=== PATIENT | female | born 1950 | race Caucasian/White ===

== ENCOUNTER 2017-11-04 13:50 | Day surgery (SDC) | payer MEDICARE, MEDICAID ==
[2017-11-01 10:47] LABS: BASOPHILS # (AUTO) 0.1 X10'3 (0-0.2); BASOPHILS % (AUTO) 0.9 % (0-1); EOSINOPHILS # (AUTO) 0.2 X10'3 (0-0.9); EOSINOPHILS % (AUTO) 3.4 % (0-6); HEMATOCRIT 35.1 % (35.0-45.0); HEMOGLOBIN 12.1 g/dl (12.0-16.0); LYMPHOCYTES # (AUTO) 1.5 X10'3 (1.1-4.8); LYMPHOCYTES % (AUTO) 23.8 % (21-51); MEAN CORPUSCULAR HEMOGLOBIN 30.1 PG (27.0-31.0); MEAN CORPUSCULAR HGB CONC 34.4 % (33.0-36.5); MEAN CORPUSCULAR VOLUME 87.5 FL (78-98); MEAN PLATELET VOLUME 8.3 FL (7.4-10.4); MONOCYTES # (AUTO) 0.5 X10'3 (0-0.9); MONOCYTES % (AUTO) 8.2 % (2-12); NEUTROPHILS # (AUTO) 3.9 X10'3 (1.8-7.7); NEUTROPHILS % (AUTO) 63.7 % (42-75); PLATELET COUNT 231 X10'3 (140-440); RED BLOOD COUNT 4.01 X10'6 (4.20-5.60); WHITE BLOOD COUNT 6.1 X10'3 (4.5-11.0)
[2017-11-01 11:02] LABS: ALBUMIN 2.8 G/DL (3.4-5.0); ANION GAP 7 (8-16); BLOOD UREA NITROGEN 16 MG/DL (7-18); BUN/CREATININE RATIO 12.5 (6.6-38.0); CALCIUM 8.5 MG/DL (8.5-10.1); CHLORIDE 104 MMOL/L (99-107); CREATININE 1.28 MG/DL (0.40-0.90); GLUCOSE 107 MG/DL (70-104); PARTIAL THROMBOPLASTIN TIME 27 SECONDS (22-32); POTASSIUM 3.9 MMOL/L (3.5-5.1); PROTHROMBIN TIME 10.7 SECONDS (9.0-12.0); SODIUM 140 MMOL/L (135-145); TOTAL CARBON DIOXIDE 29.1 MMOL/L (24-32); eGFR 42 ML/MIN
[2017-11-04] VITALS (12 sets, daily range): BP systolic 120–161; BP diastolic 56–93
[~2017-11-04] VITALS: Ht 165.1 cm; Wt 111.8 kg
[~2017-11-04 13:50] MED LIST: APIX5TAB3 PO; CITA-278 PO; FLEC100T2 PO; FURO20TA4 PO; HYDR-3686 PO; LORA0.5T PO; MULT-1179 PO; OMEP20CA4 PO; QUET25TA PO; SIMV20TA5 PO; TRAM50TA2 PO; ZOLP10TA5 PO
[2017-11-04] MEDS ORDERED: fentaNYL/PF 50MCG/1 ML 2ML syringe IV ONE (14:30)
[2017-11-04] MEDS ORDERED: MIDAZolam 5mg/ml 2ml vial IV ONE (14:30)
[2017-11-04] MEDS ORDERED: normal saline 1000ml 1,000 ML IV SCH (14:30)
[2017-11-04] MEDS ORDERED: ALBU18HF2 INH (15:01)
[2017-11-04] MEDS ORDERED: FLUT16SP2 BOTHNARES (15:01)
[2017-11-04] MEDS ORDERED: LEVO100T PO (15:01)
[2017-11-04] MEDS ORDERED: FAMO40TA7 PO (15:01)
[2017-11-04] MEDS ORDERED: BUSP15TA3 PO (15:01)
[2017-11-04] MEDS ORDERED: DIPH25CA6 PO (15:01)
[2017-11-04] MEDS ORDERED: PRAM0.253 PO (15:01)
== END 2017-11-04 18:15 | disposition home or self-care (01) ==
LOC: SSTAY O 13:50
PROVIDERS: ATTEND Internal Medicine Interventional Cardiology
DX: I48.3 Typical atrial flutter (principal); I13.0 Hypertensive heart and chronic kidney disease with heart failure and stage 1 through stage 4 chronic kidney disease, or unspecified chronic kidney disease; G47.33 Obstructive sleep apnea (adult) (pediatric); I50.33 Acute on chronic diastolic (congestive) heart failure; F41.9 Anxiety disorder, unspecified; K21.9 Gastro-esophageal reflux disease without esophagitis; F32.9 Major depressive disorder, single episode, unspecified; I25.2 Old myocardial infarction; I48.0 Paroxysmal atrial fibrillation; N18.4 Chronic kidney disease, stage 4 (severe); I25.10 Atherosclerotic heart disease of native coronary artery without angina pectoris; E03.9 Hypothyroidism, unspecified; M19.90 Unspecified osteoarthritis, unspecified site; Z79.899 Other long term (current) drug therapy; Z88.8 Allergy status to other drugs, medicaments and biological substances; Z68.42 Body mass index [BMI] 45.0-49.9, adult; Z82.49 Family history of ischemic heart disease and other diseases of the circulatory system; Z90.710 Acquired absence of both cervix and uterus; Z79.01 Long term (current) use of anticoagulants
CPT/HCPCS: 36415; 80048; 85025; 85610; 85730; 92960; 93005; J2250; J3010; J7030; A4620

== ENCOUNTER 2018-01-10 01:32 | Inpatient (IN) | payer MEDICARE, MEDICAID ==
[~2018-01-10] VITALS: Ht 165.1 cm; Wt 109.0 kg
[~2018-01-10 01:32] MED LIST changes: +ALBU18HF2 INH; +BUSP15TA3 PO; +DIPH25CA6 PO; +FAMO40TA7 PO; +FLUT16SP2 BOTHNARES; +LEVO100T PO; +PRAM0.253 PO
[2018-01-10 02:19] LABS: BASOPHILS % (AUTO) 0.2 % (0-1); EOSINOPHILS # (AUTO) 0.1 X10'3 (0-0.9); EOSINOPHILS % (AUTO) 0.8 % (0-6); HEMATOCRIT 48.8 % (35.0-45.0); HEMOGLOBIN 16.3 g/dl (12.0-16.0); LYMPHOCYTES # (AUTO) 0.8 X10'3 (1.1-4.8); LYMPHOCYTES % (AUTO) 4.9 % (21-51); MEAN CORPUSCULAR HEMOGLOBIN 29.4 PG (27.0-31.0); MEAN CORPUSCULAR HGB CONC 33.4 % (33.0-36.5); MEAN CORPUSCULAR VOLUME 87.9 FL (78-98); MONOCYTES % (AUTO) 5.9 % (2-12); NEUTROPHILS % (AUTO) 88.2 % (42-75); PLATELET COUNT 271 X10'3 (140-440); RED BLOOD COUNT 5.56 X10'6 (4.20-5.60); RED CELL DISTRIBUTION WIDTH 16.9 % (11.5-14.5)
[2018-01-10] MEDS ORDERED: morphine 4 MG/ML inj SYRINge IV PRN (02:20)
[2018-01-10] MEDS ORDERED: ondansetron/PF 4mg/2ml inj IV ONE ×2 (02:20→03:55)
[2018-01-10] MEDS ORDERED: normal saline 1000ML IV soln IVB ONE (02:20)
[2018-01-10 02:21] LABS: INR 1.1 INR; PARTIAL THROMBOPLASTIN TIME 28 SECONDS (22-32); PROTHROMBIN TIME 11.1 SECONDS (9.0-12.0)
[2018-01-10 02:23] LABS: ALANINE AMINOTRANSFERASE 27 U/L (12-78); ALBUMIN 3.8 G/DL (3.4-5.0); ALBUMIN/GLOBULIN RATIO 0.8 (1.1-1.5); ALKALINE PHOSPHATASE 125 IU/L (46-116); ANION GAP 15 (8-16); ASPARTATE AMINO TRANSFERASE 29 U/L (10-37); BILIRUBIN,TOTAL 1.5 MG/DL (0.1-1.0); BLOOD UREA NITROGEN 17 MG/DL (7-18); BUN/CREATININE RATIO 13.3 (6.6-38.0); CALCIUM 8.8 MG/DL (8.5-10.1); CHLORIDE 97 MMOL/L (99-107); CREATININE 1.28 MG/DL (0.40-0.90); GLUCOSE 162 MG/DL (70-104); POTASSIUM 3.7 MMOL/L (3.5-5.1); SODIUM 135 MMOL/L (135-145); TOTAL PROTEIN 8.4 G/DL (6.4-8.2); eGFR 42 ML/MIN
[2018-01-10] MEDS ORDERED: morphine 4 MG/ML inj SYRINge IV ONE (03:55)
[2018-01-10] MEDS ORDERED: piperacillin/tazo 4.5gm/100ml 100 ML IV SCH (04:10)
[2018-01-10] MEDS: labetalol 20mg/4ml (5mg/ml) syringe IV PRN ×2 (04:30→05:29)
[2018-01-10] MEDS ORDERED: GABA-532 PO (04:51)
[2018-01-10] MEDS ORDERED: fentaNYL/PF 50MCG/1 ML 2ML syringe IV ONE (04:55)
[2018-01-10] MEDS ORDERED: acetaminophen 325mg tablet PO PRN (05:35)
[2018-01-10] MEDS ORDERED: morphine 2 MG/ML inj. syringe IV PRN ×2 (05:35)
[2018-01-10] MEDS ORDERED: bisacodyl 10mg suppository rectal RC PRN (05:35)
[2018-01-10] MEDS: ondansetron/PF 4mg/2ml inj IV PRN ×2 (07:54→13:43)
[2018-01-10] MEDS ORDERED: hydrALAZINE 20mg/ml inj. IV PRN (07:55)
[2018-01-10] MEDS: fluticasone nasal spray 16GM bottle NS SCH (08:00)
[2018-01-10 08:16] LABS: BASOPHILS # (AUTO) 0.3 X10'3 (0-0.2); BASOPHILS % (AUTO) 1.8 % (0-1); EOSINOPHILS % (AUTO) 0 % (0-6); HEMATOCRIT 48.6 % (35.0-45.0); HEMOGLOBIN 16.2 g/dl (12.0-16.0); LYMPHOCYTES % (AUTO) 6.7 % (21-51); MEAN CORPUSCULAR HEMOGLOBIN 29.7 PG (27.0-31.0); MEAN CORPUSCULAR HGB CONC 33.3 % (33.0-36.5); MEAN CORPUSCULAR VOLUME 88.9 FL (78-98); MEAN PLATELET VOLUME 8.8 FL (7.4-10.4); MONOCYTES # (AUTO) 1.1 X10'3 (0-0.9); MONOCYTES % (AUTO) 7.7 % (2-12); NEUTROPHILS # (AUTO) 12.1 X10'3 (1.8-7.7); NEUTROPHILS % (AUTO) 83.8 % (42-75); PLATELET COUNT 239 X10'3 (140-440); RED BLOOD COUNT 5.47 X10'6 (4.20-5.60); RED CELL DISTRIBUTION WIDTH 16.2 % (11.5-14.5); WHITE BLOOD COUNT 14.5 X10'3 (4.5-11.0)
[2018-01-10 08:25] LABS: ALANINE AMINOTRANSFERASE 27 U/L (12-78); ALBUMIN 3.5 G/DL (3.4-5.0); ALBUMIN/GLOBULIN RATIO 0.8 (1.1-1.5); ALKALINE PHOSPHATASE 115 IU/L (46-116); ANION GAP 12 (8-16); ASPARTATE AMINO TRANSFERASE 28 U/L (10-37); BILIRUBIN,TOTAL 2.2 MG/DL (0.1-1.0); BLOOD UREA NITROGEN 16 MG/DL (7-18); BUN/CREATININE RATIO 11.9 (6.6-38.0); CALCIUM 8.6 MG/DL (8.5-10.1); CHLORIDE 100 MMOL/L (99-107); CREATININE 1.34 MG/DL (0.40-0.90); GLUCOSE 150 MG/DL (70-104); POTASSIUM 3.8 MMOL/L (3.5-5.1); SODIUM 138 MMOL/L (135-145); TOTAL CARBON DIOXIDE 25.7 MMOL/L (24-32); TOTAL PROTEIN 7.7 G/DL (6.4-8.2); eGFR 40 ML/MIN
[2018-01-10] MEDS ORDERED: HYDROmorphone 1 mg/ml syringe ONE (08:36)
[2018-01-10] MEDS ORDERED: proCHLORperazine 10 MG/2 ml inj ONE (08:36)
[2018-01-10] MEDS ORDERED: proCHLORperazine 10 MG/2 ml inj IV ONE (08:45)
[2018-01-10] MEDS ORDERED: HYDROmorphone 1 mg/ml syringe IV PRN ×2 (08:45→09:14)
[2018-01-10 08:59] LABS: CLARITY,URINE CLEAR (Clear); COLOR,URINE YELLOW (Yellow); GLUCOSE, URINE NEGATIVE (Neg); KETONES,URINE TRACE mg/dl (Neg); LEUKOCYTE ESTERASE ,URINE NEGATIVE (Neg); NITRITES, URINE NEGATIVE (Neg); OCCULT BLOOD,URINE SMALL (Neg); PH,URINE 6.5 (4.8-8.0); PROTEIN,URINE >=300 mg/dl (Neg); UA COLLECTION TYPE VOIDED; UROBILINOGEN,URINE 0.2 E.U/dL (0.2-1.0)
[2018-01-10 09:07] LABS: BACTERIA,URINE NONE SEEN /HPF (Neg); MUCUS STRANDS NONE SEEN /LPF (Neg); RBC,URINE 0-2 /HPF (0-2); SQUAMOUS EPITHELIAL CELL,UR FEW /LPF (FEW); WBC,URINE 0-4 /HPF (0-4)
[2018-01-10 09:20] VITALS: BP 135/79
[2018-01-10] MEDS: levoTHYROXINE 100mcg tablet PO SCH (09:33)
[2018-01-10] MEDS: pramipexole 0.25mg tablet PO SCH ×3 (09:33→20:03)
[2018-01-10] MEDS: flecainide 50mg tablet PO SCH ×2 (09:33→19:01)
[2018-01-10] MEDS: gabapentin 300mg capsule PO SCH ×3 (09:33→20:03)
[2018-01-10] MEDS: busPIRone 15mg tablet PO SCH ×2 (09:34→19:01)
[2018-01-10] MEDS: citalopram 20mg tablet PO SCH (09:34)
[2018-01-10] MEDS: pantoprazole 40 MG vial IV SCH ×2 (09:34→19:02)
[2018-01-10] MEDS: furosemide 20MG tablet PO SCH (09:34)
[2018-01-10] MEDS: multivitamins, therapeutics tablet PO SCH (09:34)
[2018-01-10] MEDS: HYDROcodone/acetaminophen 10/325mg tab PO PRN ×2 (09:34→20:09)
[2018-01-10] MEDS: famotidine 20mg tablet PO SCH ×2 (09:34→19:01)
[2018-01-10] MEDS: normal saline 1000ml 1,000 ML IV SCH ×3 (09:35→20:05)
[2018-01-10] MEDS ORDERED: LISI-604 PO (12:02)
[2018-01-10 12:18] VITALS: BP 137/62
[2018-01-10] MEDS: albuterol 2.5 MG/3 ML nebule NEB SCH ×2 (14:00→20:00)
[2018-01-10] MEDS: piperacillin/tazo 4.5gm/100ml 100 ML IV SCH ×2 (16:07→23:18)
[2018-01-10] MEDS ORDERED: proCHLORperazine 10 MG/2 ml inj IV PRN (17:40)
[2018-01-10] MEDS: lactobacillus rhamnosus 10,000 MMU CELLS/CAPSULE PO SCH (19:01)
[2018-01-10 20:00] VITALS: BP 169/71
[2018-01-10] MEDS: atorvastatin 10mg tablet PO SCH (20:03)
[2018-01-10] MEDS: QUEtiapine 25mg tablet PO SCH (20:03)
[2018-01-10 21:51] VITALS: BP 133/57
[2018-01-10 22:18] VITALS: BP 137/52
[2018-01-11] VITALS (18 sets, daily range): BP systolic 123–167; BP diastolic 52–97
[2018-01-11] MEDS: ondansetron/PF 4mg/2ml inj IV PRN (01:16)
[2018-01-11 06:18] LABS: BASOPHILS % (AUTO) 0 % (0-1); EOSINOPHILS % (AUTO) 0 % (0-6); HEMATOCRIT 45.1 % (35.0-45.0); HEMOGLOBIN 15.3 g/dl (12.0-16.0); LYMPHOCYTES # (AUTO) 0.6 X10'3 (1.1-4.8); LYMPHOCYTES % (AUTO) 3.9 % (21-51); MEAN CORPUSCULAR HEMOGLOBIN 29.8 PG (27.0-31.0); MEAN CORPUSCULAR HGB CONC 33.9 % (33.0-36.5); MEAN PLATELET VOLUME 9.4 FL (7.4-10.4); MONOCYTES # (AUTO) 0.8 X10'3 (0-0.9); MONOCYTES % (AUTO) 5.3 % (2-12); NEUTROPHILS # (AUTO) 14.4 X10'3 (1.8-7.7); NEUTROPHILS % (AUTO) 90.8 % (42-75); PLATELET COUNT 209 X10'3 (140-440); RED BLOOD COUNT 5.12 X10'6 (4.20-5.60); RED CELL DISTRIBUTION WIDTH 17.8 % (11.5-14.5); WHITE BLOOD COUNT 15.8 X10'3 (4.5-11.0)
[2018-01-11 06:34] LABS: ALANINE AMINOTRANSFERASE 31 U/L (12-78); ALBUMIN 3.1 G/DL (3.4-5.0); ALBUMIN/GLOBULIN RATIO 0.8 (1.1-1.5); ALKALINE PHOSPHATASE 96 IU/L (46-116); ANION GAP 13 (8-16); ASPARTATE AMINO TRANSFERASE 32 U/L (10-37); BILIRUBIN,TOTAL 1.5 MG/DL (0.1-1.0); BLOOD UREA NITROGEN 26 MG/DL (7-18); BUN/CREATININE RATIO 15.3 (6.6-38.0); CALCIUM 8.1 MG/DL (8.5-10.1); CHLORIDE 103 MMOL/L (99-107); GLUCOSE 106 MG/DL (70-104); POTASSIUM 3.5 MMOL/L (3.5-5.1); SODIUM 141 MMOL/L (135-145); TOTAL CARBON DIOXIDE 24.6 MMOL/L (24-32); TOTAL PROTEIN 7.1 G/DL (6.4-8.2); eGFR 30 ML/MIN
[2018-01-11] MEDS: normal saline 1000ml 1,000 ML IV SCH ×2 (06:36→16:18)
[2018-01-11] MEDS ORDERED: BUPIVAcaine/PF 2.5mg/ml (0.25%) 10ml vial ONE (07:53)
[2018-01-11] MEDS ORDERED: ceFAZolin 1000mg inj ONE (07:53)
[2018-01-11] MEDS: fluticasone nasal spray 16GM bottle NS SCH (08:00)
[2018-01-11] MEDS: piperacillin/tazo 4.5gm/100ml 100 ML IV SCH ×3 (08:27→23:22)
[2018-01-11] MEDS: albuterol 2.5 MG/3 ML nebule NEB SCH (08:36)
[2018-01-11] MEDS: pantoprazole 40 MG vial IV SCH ×2 (08:39→20:19)
[2018-01-11] MEDS: famotidine 20mg tablet PO SCH ×2 (08:45→20:19)
[2018-01-11] MEDS: pramipexole 0.25mg tablet PO SCH ×3 (08:45→20:19)
[2018-01-11] MEDS: citalopram 20mg tablet PO SCH (08:45)
[2018-01-11] MEDS: gabapentin 300mg capsule PO SCH ×3 (08:45→20:19)
[2018-01-11] MEDS: flecainide 50mg tablet PO SCH ×2 (08:45→20:20)
[2018-01-11] MEDS: lactobacillus rhamnosus 10,000 MMU CELLS/CAPSULE PO SCH ×2 (08:45→20:20)
[2018-01-11] MEDS: busPIRone 15mg tablet PO SCH ×2 (08:45→20:19)
[2018-01-11] MEDS: multivitamins, therapeutics tablet PO SCH (08:45)
[2018-01-11] MEDS: furosemide 20MG tablet PO SCH (08:45)
[2018-01-11] MEDS: levoTHYROXINE 100mcg tablet PO SCH (08:45)
[2018-01-11] MEDS ORDERED: meperidine/PF 25mg/ml syringe IV PRN ×3 (09:25)
[2018-01-11] MEDS ORDERED: ondansetron/PF 4mg/2ml inj IV PRN ×2 (09:25→13:50)
[2018-01-11] MEDS ORDERED: morphine 4 MG/ML inj SYRINge IV PRN ×2 (09:25)
[2018-01-11] MEDS ORDERED: proCHLORperazine 10 MG/2 ml inj IV PRN (09:25)
[2018-01-11] MEDS ORDERED: ringers solution, lacted 1,000 ML IV SCH (09:25)
[2018-01-11] MEDS ORDERED: fentaNYL/PF 50MCG/1 ML 2ML syringe ONE (10:15)
[2018-01-11] MEDS ORDERED: midazolam 2 mg/2 ml injection ONE (10:16)
[2018-01-11] MEDS ORDERED: LIDOcaine 1%/PF 5ML 10 MG/ML VIAL ONE (10:18)
[2018-01-11] MEDS ORDERED: propofol inj 20 ML IV ONE (10:18)
[2018-01-11] MEDS ORDERED: rocuronium 10mg/ml inj IV ONE (10:18)
[2018-01-11] MEDS ORDERED: dexamethasone sod phosphate 10mg/ml inj ONE (12:38)
[2018-01-11] MEDS ORDERED: sevoflurane 250ml liquid IH ONE (12:38)
[2018-01-11] MEDS ORDERED: albuterol 2.5 MG/3 ML nebule ONE (12:38)
[2018-01-11] MEDS ORDERED: ondansetron/PF 4mg/2ml inj ONE (13:29)
[2018-01-11] MEDS ORDERED: HYDROcodone/acetaminophen 10/325mg tab PO PRN (13:50)
[2018-01-11] MEDS ORDERED: ipratropium/albuterol 3ml nebule IH ONE (14:10)
[2018-01-11] MEDS: HYDROmorphone 1 mg/ml syringe IV PRN (17:35)
[2018-01-11] MEDS: atorvastatin 10mg tablet PO SCH (20:19)
[2018-01-11] MEDS: QUEtiapine 25mg tablet PO SCH (20:20)
[2018-01-12] VITALS: BP_SYST 120; BP_SYST 137; BP_DIAS 51; BP_DIAS 52
[2018-01-12] MEDS: HYDROmorphone 1 mg/ml syringe IV PRN (01:00)
[2018-01-12] MEDS: albuterol 2.5 MG/3 ML nebule NEB SCH ×5 (02:41→20:24)
[2018-01-12] MEDS: normal saline 1000ml 1,000 ML IV SCH ×2 (02:52→16:35)
[2018-01-12 03:52] VITALS: BP 104/57
[2018-01-12 05:58] LABS: BASOPHILS % (AUTO) 0.1 % (0-1); EOSINOPHILS % (AUTO) 0 % (0-6); HEMATOCRIT 34.6 % (35.0-45.0); HEMOGLOBIN 11.7 g/dl (12.0-16.0); LYMPHOCYTES # (AUTO) 0.5 X10'3 (1.1-4.8); LYMPHOCYTES % (AUTO) 2.6 % (21-51); MEAN CORPUSCULAR HEMOGLOBIN 29.7 PG (27.0-31.0); MEAN CORPUSCULAR HGB CONC 33.7 % (33.0-36.5); MEAN CORPUSCULAR VOLUME 88.2 FL (78-98); MEAN PLATELET VOLUME 9.4 FL (7.4-10.4); MONOCYTES # (AUTO) 0.7 X10'3 (0-0.9); MONOCYTES % (AUTO) 3.7 % (2-12); NEUTROPHILS # (AUTO) 18.4 X10'3 (1.8-7.7); NEUTROPHILS % (AUTO) 93.6 % (42-75); PLATELET COUNT 187 X10'3 (140-440); RED BLOOD COUNT 3.93 X10'6 (4.20-5.60); RED CELL DISTRIBUTION WIDTH 17.6 % (11.5-14.5); WHITE BLOOD COUNT 19.7 X10'3 (4.5-11.0)
[2018-01-12 06:08] LABS: ALANINE AMINOTRANSFERASE 19 U/L (12-78); ALBUMIN 2.4 G/DL (3.4-5.0); ALBUMIN/GLOBULIN RATIO 0.6 (1.1-1.5); ALKALINE PHOSPHATASE 77 IU/L (46-116); ANION GAP 10 (8-16); ASPARTATE AMINO TRANSFERASE 24 U/L (10-37); BILIRUBIN,TOTAL 0.7 MG/DL (0.1-1.0); BLOOD UREA NITROGEN 27 MG/DL (7-18); BUN/CREATININE RATIO 16.6 (6.6-38.0); CALCIUM 8.2 MG/DL (8.5-10.1); CHLORIDE 103 MMOL/L (99-107); CREATININE 1.63 MG/DL (0.40-0.90); GLUCOSE 132 MG/DL (70-104); POTASSIUM 3.9 MMOL/L (3.5-5.1); SODIUM 135 MMOL/L (135-145); TOTAL CARBON DIOXIDE 22.5 MMOL/L (24-32); TOTAL PROTEIN 6.2 G/DL (6.4-8.2); eGFR 32 ML/MIN
[2018-01-12 07:55] VITALS: BP 119/54
[2018-01-12] MEDS: fluticasone nasal spray 16GM bottle NS SCH (08:00)
[2018-01-12] MEDS: pantoprazole 40 MG vial IV SCH ×2 (08:07→20:04)
[2018-01-12] MEDS: piperacillin/tazo 4.5gm/100ml 100 ML IV SCH ×3 (08:07→23:33)
[2018-01-12] MEDS: citalopram 20mg tablet PO SCH (08:09)
[2018-01-12] MEDS: busPIRone 15mg tablet PO SCH ×2 (08:09→20:05)
[2018-01-12] MEDS: furosemide 20MG tablet PO SCH (08:10)
[2018-01-12] MEDS: lactobacillus rhamnosus 10,000 MMU CELLS/CAPSULE PO SCH ×2 (08:10→20:05)
[2018-01-12] MEDS: famotidine 20mg tablet PO SCH ×2 (08:10→20:05)
[2018-01-12] MEDS: levoTHYROXINE 100mcg tablet PO SCH (08:10)
[2018-01-12] MEDS: pramipexole 0.25mg tablet PO SCH ×3 (08:10→20:05)
[2018-01-12] MEDS: gabapentin 300mg capsule PO SCH ×3 (08:10→20:05)
[2018-01-12] MEDS: flecainide 50mg tablet PO SCH ×2 (08:11→20:05)
[2018-01-12] MEDS: multivitamins, therapeutics tablet PO SCH (08:11)
[2018-01-12 11:47] VITALS: BP 139/59
[2018-01-12] MEDS ORDERED: fluticasone nasal spray 16GM bottle NS PRN (14:10)
[2018-01-12] MEDS: apixaban 5mg tablet PO SCH ×2 (16:34→20:05)
[2018-01-12] MEDS: sucralfate 1gm/10ml UD suspension PO SCH ×2 (16:43→20:05)
[2018-01-12 18:30] VITALS: BP 158/81
[2018-01-12] MEDS: atorvastatin 10mg tablet PO SCH (20:05)
[2018-01-12] MEDS: QUEtiapine 25mg tablet PO SCH (20:05)
[2018-01-13] VITALS: BP 144/81
[2018-01-13] MEDS: HYDROmorphone 1 mg/ml syringe IV PRN ×2 (00:12→07:23)
[2018-01-13] MEDS: albuterol 2.5 MG/3 ML nebule NEB SCH ×3 (03:10→13:24)
[2018-01-13] MEDS: HYDROcodone/acetaminophen 10/325mg tab PO PRN ×2 (03:26→16:14)
[2018-01-13 06:06] LABS: BASOPHILS % (AUTO) 0.1 % (0-1); EOSINOPHILS # (AUTO) 0.2 X10'3 (0-0.9); EOSINOPHILS % (AUTO) 1.1 % (0-6); HEMATOCRIT 36.6 % (35.0-45.0); HEMOGLOBIN 12.4 g/dl (12.0-16.0); LYMPHOCYTES # (AUTO) 0.8 X10'3 (1.1-4.8); LYMPHOCYTES % (AUTO) 4.5 % (21-51); MEAN CORPUSCULAR HEMOGLOBIN 30.3 PG (27.0-31.0); MEAN CORPUSCULAR HGB CONC 33.8 % (33.0-36.5); MEAN CORPUSCULAR VOLUME 89.7 FL (78-98); MEAN PLATELET VOLUME 9.3 FL (7.4-10.4); MONOCYTES # (AUTO) 1.1 X10'3 (0-0.9); MONOCYTES % (AUTO) 6.5 % (2-12); NEUTROPHILS # (AUTO) 15.5 X10'3 (1.8-7.7); NEUTROPHILS % (AUTO) 87.8 % (42-75); PLATELET COUNT 174 X10'3 (140-440); RED BLOOD COUNT 4.08 X10'6 (4.20-5.60); WHITE BLOOD COUNT 17.6 X10'3 (4.5-11.0)
[2018-01-13 06:24] LABS: ALANINE AMINOTRANSFERASE 24 U/L (12-78); ALBUMIN 2.4 G/DL (3.4-5.0); ALBUMIN/GLOBULIN RATIO 0.6 (1.1-1.5); ALKALINE PHOSPHATASE 72 IU/L (46-116); ANION GAP 13 (8-16); ASPARTATE AMINO TRANSFERASE 27 U/L (10-37); BILIRUBIN,TOTAL 0.6 MG/DL (0.1-1.0); BLOOD UREA NITROGEN 26 MG/DL (7-18); BUN/CREATININE RATIO 18.7 (6.6-38.0); CALCIUM 8.2 MG/DL (8.5-10.1); CHLORIDE 104 MMOL/L (99-107); CREATININE 1.39 MG/DL (0.40-0.90); GLUCOSE 124 MG/DL (70-104); POTASSIUM 3.3 MMOL/L (3.5-5.1); SODIUM 138 MMOL/L (135-145); TOTAL CARBON DIOXIDE 21.3 MMOL/L (24-32); TOTAL PROTEIN 6.5 G/DL (6.4-8.2); eGFR 38 ML/MIN
[2018-01-13] MEDS: sucralfate 1gm/10ml UD suspension PO SCH ×3 (07:24→16:14)
[2018-01-13] MEDS: piperacillin/tazo 4.5gm/100ml 100 ML IV SCH ×2 (07:24→16:14)
[2018-01-13] MEDS: pantoprazole 40 MG vial IV SCH (07:25)
[2018-01-13] MEDS: citalopram 20mg tablet PO SCH (07:31)
[2018-01-13] MEDS: famotidine 20mg tablet PO SCH (07:31)
[2018-01-13] MEDS: pramipexole 0.25mg tablet PO SCH ×2 (07:31→13:05)
[2018-01-13] MEDS: busPIRone 15mg tablet PO SCH (07:31)
[2018-01-13] MEDS: furosemide 20MG tablet PO SCH (07:31)
[2018-01-13] MEDS: lactobacillus rhamnosus 10,000 MMU CELLS/CAPSULE PO SCH (07:31)
[2018-01-13] MEDS: multivitamins, therapeutics tablet PO SCH (07:31)
[2018-01-13] MEDS: apixaban 5mg tablet PO SCH (07:31)
[2018-01-13] MEDS: flecainide 50mg tablet PO SCH (07:31)
[2018-01-13] MEDS: gabapentin 300mg capsule PO SCH ×2 (07:31→13:05)
[2018-01-13] MEDS: levoTHYROXINE 100mcg tablet PO SCH (07:31)
[2018-01-13 08:00] VITALS: BP 164/80
[2018-01-13] MEDS ORDERED: potassium Cl 20 mEq SR tablet PO PRN (09:15)
[2018-01-13] MEDS ORDERED: potassium Cl 40MEQ/NS 500ml 500 ML IV PRN ×2 (09:15)
[2018-01-13] MEDS: potassium Cl 20 mEq SR tablet PO PRN ×2 (09:23→14:43)
[2018-01-13 12:00] VITALS: BP 123/66
[2018-01-13] MEDS ORDERED: PANT-47 PO (13:59)
[2018-01-13] MEDS ORDERED: DOCU-28 PO (13:59)
[2018-01-13] MEDS ORDERED: HYDR-3972 PO (13:59)
[2018-01-13] MEDS ORDERED: AMOX-580 PO (13:59)
== END 2018-01-13 17:06 | disposition home or self-care (01) | DRG 418 ==
LOC: ER 01:32 → ED HOLD 05:34 → SUR 3N 09:18
PROVIDERS: ADMIT Emergency Medicine; ATTEND Emergency Medicine
PROC: 0FT44ZZ Resection of Gallbladder, Percutaneous Endoscopic Approach (ICD-10-PCS; principal; 2018-01-11 12:38)
DX: K81.0 Acute cholecystitis (principal); I50.32 Chronic diastolic (congestive) heart failure; I48.92 Unspecified atrial flutter; Z68.41 Body mass index [BMI] 40.0-44.9, adult; K57.30 Diverticulosis of large intestine without perforation or abscess without bleeding; K29.00 Acute gastritis without bleeding; E03.9 Hypothyroidism, unspecified; E78.5 Hyperlipidemia, unspecified; I48.91 Unspecified atrial fibrillation; F32.9 Major depressive disorder, single episode, unspecified; F41.9 Anxiety disorder, unspecified; K21.0 Gastro-esophageal reflux disease with esophagitis; E66.01 Morbid (severe) obesity due to excess calories; E86.0 Dehydration; J44.9 Chronic obstructive pulmonary disease, unspecified; I11.0 Hypertensive heart disease with heart failure; I25.10 Atherosclerotic heart disease of native coronary artery without angina pectoris; I25.2 Old myocardial infarction; Z79.01 Long term (current) use of anticoagulants; Z82.49 Family history of ischemic heart disease and other diseases of the circulatory system; Z90.710 Acquired absence of both cervix and uterus; Z82.3 Family history of stroke; Z83.2 Family history of diseases of the blood and blood-forming organs and certain disorders involving the immune mechanism; Z82.0 Family history of epilepsy and other diseases of the nervous system; Z79.899 Other long term (current) drug therapy; Z87.11 Personal history of peptic ulcer disease; Z88.1 Allergy status to other antibiotic agents; Z79.890 Hormone replacement therapy
CPT/HCPCS: 36415; 71045; 74176; 76700; 80053; 81001; 82948; 83605; 84443; 85025; 85610; 85730; 86885; 86900; 86901; 87040; 87070; 88304; 93005; 94640; 94760; 96365; 96375; 96376; 99285; A6258; A7000; C9113; J0360; J0690; J0780; J1100; J1170; J2001; J2250; J2270; J2405; J2543; J2704; J3010; J3490; J7030; J7120

== ENCOUNTER 2018-01-24 02:29 | Inpatient (IN) | payer MEDICARE, MEDICAID ==
[2018-01-24] VITALS (18 sets, daily range): BP systolic 96–139; BP diastolic 54–82
[~2018-01-24] VITALS: Ht 165.1 cm; Wt 109.0 kg
[~2018-01-24 02:29] MED LIST changes: +AMOX-580 PO; -DIPH25CA6 PO; +DOCU-28 PO; +GABA-532 PO; -HYDR-3686 PO; +HYDR-3972 PO; +LISI-604 PO; -LORA0.5T PO; -OMEP20CA4 PO; +PANT-47 PO; -TRAM50TA2 PO; -ZOLP10TA5 PO
[2018-01-24] MEDS ORDERED: ondansetron/PF 4mg/2ml inj IV ONE (02:40)
[2018-01-24] MEDS ORDERED: morphine 4 MG/ML inj SYRINge IV ONE (02:40)
[2018-01-24] MEDS ORDERED: normal saline 1000ML IV soln IVB ONE (02:45)
[2018-01-24 03:13] LABS: BASOPHILS # (AUTO) 0.1 X10'3 (0-0.2); BASOPHILS % (AUTO) 0.5 % (0-1); EOSINOPHILS # (AUTO) 0.2 X10'3 (0-0.9); EOSINOPHILS % (AUTO) 1.8 % (0-6); HEMATOCRIT 30.6 % (35.0-45.0); HEMOGLOBIN 10.2 g/dl (12.0-16.0); LYMPHOCYTES # (AUTO) 1.5 X10'3 (1.1-4.8); LYMPHOCYTES % (AUTO) 10.9 % (21-51); MEAN CORPUSCULAR HEMOGLOBIN 29.4 PG (27.0-31.0); MEAN CORPUSCULAR HGB CONC 33.4 % (33.0-36.5); MEAN PLATELET VOLUME 8.1 FL (7.4-10.4); MONOCYTES # (AUTO) 0.9 X10'3 (0-0.9); MONOCYTES % (AUTO) 6.7 % (2-12); NEUTROPHILS # (AUTO) 10.7 X10'3 (1.8-7.7); NEUTROPHILS % (AUTO) 80.1 % (42-75); PLATELET COUNT 343 X10'3 (140-440); RED BLOOD COUNT 3.48 X10'6 (4.20-5.60); RED CELL DISTRIBUTION WIDTH 17.2 % (11.5-14.5); WHITE BLOOD COUNT 13.4 X10'3 (4.5-11.0)
[2018-01-24 03:30] LABS: ALANINE AMINOTRANSFERASE 35 U/L (12-78); ALBUMIN 2.3 G/DL (3.4-5.0); ALBUMIN/GLOBULIN RATIO 0.6 (1.1-1.5); ALKALINE PHOSPHATASE 77 IU/L (46-116); ANION GAP 14 (8-16); ASPARTATE AMINO TRANSFERASE 21 U/L (10-37); BILIRUBIN,TOTAL 0.4 MG/DL (0.1-1.0); BLOOD UREA NITROGEN 24 MG/DL (7-18); BUN/CREATININE RATIO 10.9 (6.6-38.0); CALCIUM 8.2 MG/DL (8.5-10.1); CHLORIDE 102 MMOL/L (99-107); GLUCOSE 111 MG/DL (70-104); SODIUM 142 MMOL/L (135-145); TOTAL CARBON DIOXIDE 26.4 MMOL/L (24-32); TOTAL PROTEIN 6.2 G/DL (6.4-8.2); eGFR 22 ML/MIN
[2018-01-24] MEDS ORDERED: propofol 10mg/ml 20ml vial IV ONE (03:30)
[2018-01-24 03:39] LABS: CREATINE KINASE 43 U/L (26-192); MAGNESIUM 1.8 MG/DL (1.5-2.4)
[2018-01-24 03:43] LABS: INR 1.2 INR; PARTIAL THROMBOPLASTIN TIME 31 SECONDS (22-32); PROTHROMBIN TIME 12.7 SECONDS (9.0-12.0)
[2018-01-24] MEDS ORDERED: ondansetron/PF 4mg/2ml inj IV PRN ×2 (05:20→14:30)
[2018-01-24] MEDS ORDERED: docusate sod 100mg capsule PO PRN (05:20)
[2018-01-24] MEDS ORDERED: acetaminophen 325mg tablet PO PRN ×3 (05:20→16:00)
[2018-01-24] MEDS ORDERED: mag hydrox/Alum hydrox/simeth 30ml oral suspension PO PRN (05:20)
[2018-01-24] MEDS ORDERED: magnesium hydroxide 30ml (MOM) UD suspension PO PRN ×2 (05:20→16:00)
[2018-01-24] MEDS ORDERED: morphine 2 MG/ML inj. syringe IV PRN (05:20)
[2018-01-24] MEDS: normal saline 1000ml 1,000 ML IV SCH ×3 (05:26→17:10)
[2018-01-24] MEDS ORDERED: heparin 10,000 units/1 ML INJ IV PRN (05:30)
[2018-01-24] MEDS: fluticasone nasal spray 16GM bottle NS SCH (08:00)
[2018-01-24] MEDS: gabapentin 300mg capsule PO SCH ×3 (08:07→21:16)
[2018-01-24] MEDS: pramipexole 0.25mg tablet PO SCH ×3 (08:08→21:16)
[2018-01-24] MEDS: busPIRone 15mg tablet PO SCH ×2 (08:08→21:17)
[2018-01-24] MEDS: citalopram 20mg tablet PO SCH (08:08)
[2018-01-24] MEDS: flecainide 50mg tablet PO SCH ×2 (08:08→21:16)
[2018-01-24] MEDS: levoTHYROXINE 100mcg tablet PO SCH (08:08)
[2018-01-24] MEDS: famotidine 20mg tablet PO SCH ×2 (08:08→21:17)
[2018-01-24] MEDS ORDERED: HYDROmorphone inj. 0.5 MG/0.5 ML DISP.SYRIN IV PRN ×2 (08:15→14:30)
[2018-01-24] MEDS: HYDROcodone/acetaminophen 10/325mg tab PO PRN ×2 (08:15→18:00)
[2018-01-24] MEDS: HYDROmorphone 1 mg/ml syringe IV PRN (09:26)
[2018-01-24] MEDS ORDERED: fentaNYL /PF 50mcg/ml 5ml ampule ONE (13:25)
[2018-01-24] MEDS ORDERED: normal saline 500ml IV soln 1,000 ML IV ONE ×2 (13:45→13:50)
[2018-01-24] MEDS ORDERED: BUPIVAcaine/PF 2.5mg/ml (0.25%) 10ml vial ONE (14:16)
[2018-01-24] MEDS ORDERED: ringers solution, lacted 1,000 ML IV SCH (14:26)
[2018-01-24] MEDS ORDERED: morphine 4 MG/ML inj SYRINge IV PRN (14:30)
[2018-01-24] MEDS ORDERED: rocuronium 10mg/ml inj IV ONE (14:36)
[2018-01-24] MEDS ORDERED: propofol inj 20 ML IV ONE (14:36)
[2018-01-24] MEDS ORDERED: LIDOcaine 2% (20mg/ml) 5ml vial ONE (14:37)
[2018-01-24] MEDS ORDERED: sevoflurane 250ml liquid IH ONE (14:40)
[2018-01-24] MEDS ORDERED: ceFAZolin 1GM/D5W- ADD-VANTAGE 50 ML IV SCH (16:00)
[2018-01-24] MEDS ORDERED: bisacodyl 10mg suppository rectal RC PRN (16:00)
[2018-01-24] MEDS ORDERED: diphenhydrAMINE 25mg capsule PO PRN ×2 (16:00)
[2018-01-24 16:13] LABS: CLARITY,URINE SLIGHTLY CLOUDY (Clear); COLOR,URINE YELLOW (Yellow); GLUCOSE, URINE NEGATIVE (Neg); KETONES,URINE NEGATIVE (Neg); LEUKOCYTE ESTERASE ,URINE NEGATIVE (Neg); NITRITES, URINE NEGATIVE (Neg); OCCULT BLOOD,URINE NEGATIVE (Neg); PH,URINE 5.5 (4.8-8.0); PROTEIN,URINE TRACE mg/dl (Neg); UROBILINOGEN,URINE 0.2 E.U/dL (0.2-1.0)
[2018-01-24 16:18] LABS: UA COLLECTION TYPE FOLEY CATH
[2018-01-24] MEDS ORDERED: ipratropium/albuterol 3ml nebule IH ONE (16:20)
[2018-01-24 16:23] LABS: AMORPHOUS URATES 1+; BACTERIA,URINE NONE SEEN /HPF (Neg); MUCUS STRANDS NONE SEEN /LPF (Neg); RBC,URINE 0-2 /HPF (0-2); SQUAMOUS EPITHELIAL CELL,UR NONE SEEN /LPF (FEW); WBC,URINE 0-4 /HPF (0-4)
[2018-01-24] MEDS ORDERED: ipratropium/albuterol 3ml nebule ONE (16:24)
[2018-01-24] MEDS ORDERED: neostigmine methylsulfate 1 MG/ML 10ml vial ONE (16:26)
[2018-01-24] MEDS ORDERED: albuterol 60 PUFF/8GM Inhaler IH ONE (16:26)
[2018-01-24] MEDS ORDERED: ePHEDrine 50MG/ML INJ. ONE (16:26)
[2018-01-24] MEDS ORDERED: glycopyrrolate 0.2mg/ml inj ONE (16:26)
[2018-01-24] MEDS ORDERED: epiNEPHrine 1 mg/ml inj ONE (16:26)
[2018-01-24] MEDS ORDERED: ondansetron/PF 4mg/2ml inj ONE (16:26)
[2018-01-24] MEDS: HYDROmorphone inj. 0.5 MG/0.5 ML DISP.SYRIN IV PRN ×2 (16:44→16:55)
[2018-01-24] MEDS: QUEtiapine 25mg tablet PO SCH (21:17)
[2018-01-24] MEDS: sennosides 8.6mg tablet PO SCH (21:17)
[2018-01-24] MEDS: atorvastatin 10mg tablet PO SCH (21:17)
[2018-01-24] MEDS: ceFAZolin 1GM/D5W- ADD-VANTAGE 50 ML IV SCH (23:13)
[2018-01-25] MEDS: HYDROcodone/acetaminophen 10/325mg tab PO PRN ×4 (01:44→21:11)
[2018-01-25 02:00] VITALS: BP_SYST 105; BP_SYST 141; BP_DIAS 100; BP_DIAS 68
[2018-01-25] MEDS: HYDROmorphone 1 mg/ml syringe IV PRN ×2 (04:59→23:12)
[2018-01-25] MEDS: normal saline 1000ml 1,000 ML IV SCH ×2 (05:59→17:10)
[2018-01-25 06:00] VITALS: BP 101/60
[2018-01-25] MEDS: flecainide 50mg tablet PO SCH ×2 (07:31→20:19)
[2018-01-25] MEDS: pramipexole 0.25mg tablet PO SCH ×3 (07:31→21:10)
[2018-01-25] MEDS: famotidine 20mg tablet PO SCH ×2 (07:32→20:18)
[2018-01-25] MEDS: levoTHYROXINE 100mcg tablet PO SCH (07:32)
[2018-01-25] MEDS: citalopram 20mg tablet PO SCH (07:32)
[2018-01-25] MEDS: busPIRone 15mg tablet PO SCH ×2 (07:32→20:18)
[2018-01-25] MEDS: apixaban 5mg tablet PO SCH ×2 (07:32→20:18)
[2018-01-25] MEDS: gabapentin 300mg capsule PO SCH ×3 (07:32→21:10)
[2018-01-25] MEDS: ceFAZolin 1GM/D5W- ADD-VANTAGE 50 ML IV SCH (07:33)
[2018-01-25] MEDS: fluticasone nasal spray 16GM bottle NS SCH (08:00)
[2018-01-25 08:36] LABS: BASOPHILS % (AUTO) 0.2 % (0-1); EOSINOPHILS # (AUTO) 0.3 X10'3 (0-0.9); HEMATOCRIT 27.9 % (35.0-45.0); HEMOGLOBIN 9.3 g/dl (12.0-16.0); LYMPHOCYTES # (AUTO) 0.8 X10'3 (1.1-4.8); LYMPHOCYTES % (AUTO) 6.3 % (21-51); MEAN CORPUSCULAR HEMOGLOBIN 29.9 PG (27.0-31.0); MEAN CORPUSCULAR HGB CONC 33.2 % (33.0-36.5); MEAN CORPUSCULAR VOLUME 90.1 FL (78-98); MEAN PLATELET VOLUME 8.5 FL (7.4-10.4); MONOCYTES # (AUTO) 1.1 X10'3 (0-0.9); MONOCYTES % (AUTO) 8.3 % (2-12); NEUTROPHILS % (AUTO) 83.2 % (42-75); PLATELET COUNT 291 X10'3 (140-440); RED CELL DISTRIBUTION WIDTH 17.7 % (11.5-14.5); WHITE BLOOD COUNT 13.3 X10'3 (4.5-11.0)
[2018-01-25 08:41] LABS: ALBUMIN 2.3 G/DL (3.4-5.0); ANION GAP 12 (8-16); BLOOD UREA NITROGEN 21 MG/DL (7-18); BUN/CREATININE RATIO 10.4 (6.6-38.0); CALCIUM 8.3 MG/DL (8.5-10.1); CHLORIDE 103 MMOL/L (99-107); CREATININE 2.02 MG/DL (0.40-0.90); GLUCOSE 142 MG/DL (70-104); POTASSIUM 4.3 MMOL/L (3.5-5.1); SODIUM 138 MMOL/L (135-145); TOTAL CARBON DIOXIDE 23.4 MMOL/L (24-32); eGFR 25 ML/MIN
[2018-01-25 10:00] VITALS: BP 108/57
[2018-01-25 14:00] VITALS: BP 105/81
[2018-01-25 18:00] VITALS: BP 110/56
[2018-01-25 21:00] VITALS: BP 112/59
[2018-01-25] MEDS: sennosides 8.6mg tablet PO SCH (21:10)
[2018-01-25] MEDS: QUEtiapine 25mg tablet PO SCH (21:10)
[2018-01-25] MEDS: atorvastatin 10mg tablet PO SCH (21:10)
[2018-01-26] MEDS: HYDROcodone/acetaminophen 10/325mg tab PO PRN ×4 (03:24→15:57)
[2018-01-26] MEDS: normal saline 1000ml 1,000 ML IV SCH (05:19)
[2018-01-26] MEDS: HYDROmorphone 1 mg/ml syringe IV PRN (05:38)
[2018-01-26 06:00] VITALS: BP 144/113
[2018-01-26 07:02] LABS: ALBUMIN 2.1 G/DL (3.4-5.0); ANION GAP 8 (8-16); BLOOD UREA NITROGEN 17 MG/DL (7-18); BUN/CREATININE RATIO 12.1 (6.6-38.0); CALCIUM 8.2 MG/DL (8.5-10.1); CHLORIDE 104 MMOL/L (99-107); GLUCOSE 128 MG/DL (70-104); POTASSIUM 4.7 MMOL/L (3.5-5.1); SODIUM 138 MMOL/L (135-145); TOTAL CARBON DIOXIDE 26.1 MMOL/L (24-32); eGFR 38 ML/MIN
[2018-01-26 07:03] LABS: BASOPHILS % (AUTO) 0.3 % (0-1); EOSINOPHILS # (AUTO) 0.3 X10'3 (0-0.9); EOSINOPHILS % (AUTO) 2.9 % (0-6); HEMATOCRIT 27.5 % (35.0-45.0); LYMPHOCYTES # (AUTO) 0.7 X10'3 (1.1-4.8); LYMPHOCYTES % (AUTO) 6.2 % (21-51); MEAN CORPUSCULAR HEMOGLOBIN 29.6 PG (27.0-31.0); MEAN CORPUSCULAR HGB CONC 32.9 % (33.0-36.5); MEAN CORPUSCULAR VOLUME 89.9 FL (78-98); MEAN PLATELET VOLUME 8.5 FL (7.4-10.4); MONOCYTES # (AUTO) 1.2 X10'3 (0-0.9); NEUTROPHILS # (AUTO) 9.6 X10'3 (1.8-7.7); NEUTROPHILS % (AUTO) 80.6 % (42-75); PLATELET COUNT 270 X10'3 (140-440); RED BLOOD COUNT 3.06 X10'6 (4.20-5.60); RED CELL DISTRIBUTION WIDTH 16.8 % (11.5-14.5); WHITE BLOOD COUNT 11.9 X10'3 (4.5-11.0)
[2018-01-26] MEDS: apixaban 5mg tablet PO SCH ×2 (07:22→20:14)
[2018-01-26] MEDS: busPIRone 15mg tablet PO SCH ×2 (07:22→20:15)
[2018-01-26] MEDS: citalopram 20mg tablet PO SCH (07:23)
[2018-01-26] MEDS: levoTHYROXINE 100mcg tablet PO SCH (07:23)
[2018-01-26] MEDS: famotidine 20mg tablet PO SCH ×2 (07:23→20:14)
[2018-01-26] MEDS: gabapentin 300mg capsule PO SCH ×3 (07:23→20:14)
[2018-01-26] MEDS: pramipexole 0.25mg tablet PO SCH ×3 (07:23→20:14)
[2018-01-26] MEDS: flecainide 50mg tablet PO SCH ×2 (07:24→20:14)
[2018-01-26] MEDS: fluticasone nasal spray 16GM bottle NS SCH (07:25)
[2018-01-26 10:00] VITALS: BP 127/84
[2018-01-26] MEDS ORDERED: furosemide 40mg/4ml inj IV ONE (13:30)
[2018-01-26 18:00] VITALS: BP 92/63
[2018-01-26] MEDS: sennosides 8.6mg tablet PO SCH (20:13)
[2018-01-26] MEDS: QUEtiapine 25mg tablet PO SCH (20:14)
[2018-01-26] MEDS: atorvastatin 10mg tablet PO SCH (20:14)
[2018-01-26 22:00] VITALS: BP 107/64
[2018-01-27] MEDS: HYDROcodone/acetaminophen 10/325mg tab PO PRN (05:04)
[2018-01-27 05:18] LABS: BASOPHILS % (AUTO) 0 % (0-1); EOSINOPHILS # (AUTO) 0.3 X10'3 (0-0.9); EOSINOPHILS % (AUTO) 2.5 % (0-6); HEMATOCRIT 26.6 % (35.0-45.0); HEMOGLOBIN 8.7 g/dl (12.0-16.0); LYMPHOCYTES # (AUTO) 0.7 X10'3 (1.1-4.8); LYMPHOCYTES % (AUTO) 5.2 % (21-51); MEAN CORPUSCULAR HEMOGLOBIN 29.6 PG (27.0-31.0); MEAN CORPUSCULAR HGB CONC 32.6 % (33.0-36.5); MEAN CORPUSCULAR VOLUME 90.8 FL (78-98); MEAN PLATELET VOLUME 8.9 FL (7.4-10.4); NEUTROPHILS # (AUTO) 10.7 X10'3 (1.8-7.7); NEUTROPHILS % (AUTO) 84.3 % (42-75); PLATELET COUNT 287 X10'3 (140-440); RED BLOOD COUNT 2.93 X10'6 (4.20-5.60); RED CELL DISTRIBUTION WIDTH 17.1 % (11.5-14.5); WHITE BLOOD COUNT 12.7 X10'3 (4.5-11.0)
[2018-01-27 05:23] LABS: ALBUMIN 2.1 G/DL (3.4-5.0); ANION GAP 7 (8-16); BLOOD UREA NITROGEN 14 MG/DL (7-18); BUN/CREATININE RATIO 12.4 (6.6-38.0); CALCIUM 8.5 MG/DL (8.5-10.1); CHLORIDE 103 MMOL/L (99-107); CREATININE 1.13 MG/DL (0.40-0.90); GLUCOSE 99 MG/DL (70-104); POTASSIUM 4.5 MMOL/L (3.5-5.1); SODIUM 138 MMOL/L (135-145); TOTAL CARBON DIOXIDE 27.8 MMOL/L (24-32); eGFR 48 ML/MIN
[2018-01-27 06:00] VITALS: BP 148/86
[2018-01-27] MEDS: fluticasone nasal spray 16GM bottle NS SCH (08:00)
[2018-01-27] MEDS: busPIRone 15mg tablet PO SCH ×2 (09:13→20:23)
[2018-01-27] MEDS: gabapentin 300mg capsule PO SCH ×3 (09:14→20:24)
[2018-01-27] MEDS: famotidine 20mg tablet PO SCH ×2 (09:14→20:22)
[2018-01-27] MEDS: citalopram 20mg tablet PO SCH (09:14)
[2018-01-27] MEDS: apixaban 5mg tablet PO SCH ×2 (09:14→20:23)
[2018-01-27] MEDS: pramipexole 0.25mg tablet PO SCH ×3 (09:14→20:25)
[2018-01-27] MEDS: levoTHYROXINE 100mcg tablet PO SCH (09:14)
[2018-01-27] MEDS: flecainide 50mg tablet PO SCH ×2 (09:14→20:21)
[2018-01-27 10:00] VITALS: BP 114/60
[2018-01-27] MEDS ORDERED: furosemide 40mg/4ml inj IV ONE (15:10)
[2018-01-27] MEDS ORDERED: furosemide 20MG tablet PO ONE (15:25)
[2018-01-27 18:00] VITALS: BP 128/62
[2018-01-27] MEDS: atorvastatin 10mg tablet PO SCH (20:22)
[2018-01-27] MEDS: QUEtiapine 25mg tablet PO SCH (20:24)
[2018-01-27] MEDS: sennosides 8.6mg tablet PO SCH (21:00)
[2018-01-27 21:55] VITALS: BP 127/51
[2018-01-28 06:00] VITALS: BP 184/68
[2018-01-28 06:56] LABS: BASOPHILS # (AUTO) 0.1 X10'3 (0-0.2); BASOPHILS % (AUTO) 0.5 % (0-1); EOSINOPHILS # (AUTO) 0.3 X10'3 (0-0.9); EOSINOPHILS % (AUTO) 2.7 % (0-6); HEMATOCRIT 28.5 % (35.0-45.0); HEMOGLOBIN 9.4 g/dl (12.0-16.0); LYMPHOCYTES # (AUTO) 0.9 X10'3 (1.1-4.8); LYMPHOCYTES % (AUTO) 6.8 % (21-51); MEAN CORPUSCULAR HEMOGLOBIN 29.6 PG (27.0-31.0); MEAN PLATELET VOLUME 9.1 FL (7.4-10.4); MONOCYTES # (AUTO) 1.1 X10'3 (0-0.9); MONOCYTES % (AUTO) 8.8 % (2-12); NEUTROPHILS # (AUTO) 10.1 X10'3 (1.8-7.7); NEUTROPHILS % (AUTO) 81.2 % (42-75); PLATELET COUNT 352 X10'3 (140-440); RED BLOOD COUNT 3.16 X10'6 (4.20-5.60); RED CELL DISTRIBUTION WIDTH 16.8 % (11.5-14.5); WHITE BLOOD COUNT 12.5 X10'3 (4.5-11.0)
[2018-01-28 07:04] LABS: ANION GAP 10 (8-16); BLOOD UREA NITROGEN 10 MG/DL (7-18); CALCIUM 8.7 MG/DL (8.5-10.1); CHLORIDE 98 MMOL/L (99-107); CREATININE 0.91 MG/DL (0.40-0.90); GLUCOSE 127 MG/DL (70-104); POTASSIUM 3.9 MMOL/L (3.5-5.1); SODIUM 140 MMOL/L (135-145); TOTAL CARBON DIOXIDE 31.9 MMOL/L (24-32); eGFR 62 ML/MIN
[2018-01-28] MEDS: busPIRone 15mg tablet PO SCH (07:35)
[2018-01-28] MEDS: gabapentin 300mg capsule PO SCH (07:36)
[2018-01-28] MEDS: citalopram 20mg tablet PO SCH (07:36)
[2018-01-28] MEDS: famotidine 20mg tablet PO SCH (07:36)
[2018-01-28] MEDS: levoTHYROXINE 100mcg tablet PO SCH (07:36)
[2018-01-28] MEDS: flecainide 50mg tablet PO SCH (07:36)
[2018-01-28] MEDS: pramipexole 0.25mg tablet PO SCH (07:36)
[2018-01-28] MEDS: fluticasone nasal spray 16GM bottle NS SCH (07:36)
[2018-01-28] MEDS: apixaban 5mg tablet PO SCH (07:36)
[2018-01-28] MEDS ORDERED: furosemide 40mg/4ml inj IV SCH (08:00)
[2018-01-28 10:00] VITALS: BP 161/77
[2018-01-28] MEDS ORDERED: HYDR-565 PO (11:38)
== END 2018-01-28 13:15 | disposition home health service (06) | DRG 492 ==
LOC: ER 02:30 → ED HOLD 05:20 → ORTHO 4S 07:15
PROVIDERS: ADMIT Internal Medicine; ATTEND Family Medicine
PROC: 0QSH04Z Reposition Left Tibia with Internal Fixation Device, Open Approach (ICD-10-PCS; 2018-01-24)
PROC: 2W3TX1Z Immobilization of Left Foot using Splint (ICD-10-PCS; 2018-01-24)
PROC: 0SSGXZZ Reposition Left Ankle Joint, External Approach (ICD-10-PCS; 2018-01-24)
PROC: 0QSK04Z Reposition Left Fibula with Internal Fixation Device, Open Approach (ICD-10-PCS; principal; 2018-01-24 14:40)
DX: S82.842A Displaced bimalleolar fracture of left lower leg, initial encounter for closed fracture (principal); I50.33 Acute on chronic diastolic (congestive) heart failure; I13.0 Hypertensive heart and chronic kidney disease with heart failure and stage 1 through stage 4 chronic kidney disease, or unspecified chronic kidney disease; N17.9 Acute kidney failure, unspecified; Z68.41 Body mass index [BMI] 40.0-44.9, adult; N18.3 Chronic kidney disease, stage 3 (moderate); E03.9 Hypothyroidism, unspecified; E78.5 Hyperlipidemia, unspecified; F32.9 Major depressive disorder, single episode, unspecified; R19.7 Diarrhea, unspecified; F41.9 Anxiety disorder, unspecified; W18.39XA Other fall on same level, initial encounter; R55 Syncope and collapse; I25.10 Atherosclerotic heart disease of native coronary artery without angina pectoris; I48.91 Unspecified atrial fibrillation; K21.9 Gastro-esophageal reflux disease without esophagitis; I25.2 Old myocardial infarction; Z90.710 Acquired absence of both cervix and uterus; Z88.8 Allergy status to other drugs, medicaments and biological substances; Z79.899 Other long term (current) drug therapy; Z79.01 Long term (current) use of anticoagulants; Z82.49 Family history of ischemic heart disease and other diseases of the circulatory system; Z82.3 Family history of stroke; Y93.89 Activity, other specified; Y92.89 Other specified places as the place of occurrence of the external cause; Y99.8 Other external cause status
CPT/HCPCS: 36415; 71045; 73590; 73600; 73610; 76000; 80048; 80053; 81001; 82140; 82550; 83735; 84443; 84484; 85025; 85610; 85730; 87070; 93005; 94640; 94760; 96361; 96374; 96375; 97110; 97116; 97161; 97530; 99285; A4649; A6213; A6222; A6250; A6258; A6449; A7000; C1713; J0171; J0690; J1170; J1940; J2001; J2270; J2405; J2704; J2710; J3010; J3490; J7030; J7120

== ENCOUNTER 2019-01-05 14:08 | Day surgery (SDC) | payer MEDICARE, MEDICAID ==
[2019-01-02 16:06] LABS: BASOPHILS # (AUTO) 0.1 X10'3 (0-0.2); BASOPHILS % (AUTO) 0.8 % (0-1); EOSINOPHILS # (AUTO) 0.2 X10'3 (0-0.9); HEMATOCRIT 36.5 % (35.0-45.0); LYMPHOCYTES % (AUTO) 9.8 % (21-51); MEAN CORPUSCULAR HEMOGLOBIN 30.9 PG (27.0-31.0); MEAN CORPUSCULAR HGB CONC 32.9 g/dL (33.0-36.5); MEAN CORPUSCULAR VOLUME 93.9 FL (78-98); MONOCYTES # (AUTO) 0.8 X10'3 (0-0.9); MONOCYTES % (AUTO) 7.5 % (2-12); NEUTROPHILS # (AUTO) 8.1 X10'3 (1.8-7.7); NEUTROPHILS % (AUTO) 79.9 % (42-75); PLATELET COUNT 271 X10'3 (140-440); RED BLOOD COUNT 3.89 X10'6 (4.20-5.60); RED CELL DISTRIBUTION WIDTH 17.2 % (11.5-14.5); WHITE BLOOD COUNT 10.2 X10'3 (4.5-11.0)
[2019-01-02 16:15] LABS: ALBUMIN 3.4 G/DL (3.4-5.0); ANION GAP 7 (8-16); BLOOD UREA NITROGEN 22 MG/DL (7-18); BUN/CREATININE RATIO 14.8 (6.6-38.0); CALCIUM 8.8 MG/DL (8.5-10.1); CHLORIDE 106 MMOL/L (99-107); CREATININE 1.49 MG/DL (0.40-0.90); GLUCOSE 97 MG/DL (70-104); POTASSIUM 4.3 MMOL/L (3.5-5.1); SODIUM 142 MMOL/L (135-145); TOTAL CARBON DIOXIDE 29.3 MMOL/L (24-32); eGFR 35 ML/MIN
[2019-01-02 16:22] LABS: PARTIAL THROMBOPLASTIN TIME 31 SECONDS (22-32)
[~2019-01-05] VITALS: Ht 165.1 cm; Wt 113.7 kg
[2019-01-05] VITALS (15 sets, daily range): BP systolic 71–143; BP diastolic 31–63
[~2019-01-05 14:08] MED LIST changes: -AMOX-580 PO; -CITA-278 PO; +CITA20TA28 PO; -DOCU-28 PO; -HYDR-3972 PO
[2019-01-05] MEDS ORDERED: MIDAZolam 5mg/ml 2ml vial IV ONE (14:35)
[2019-01-05] MEDS ORDERED: fentaNYL/PF 50MCG/1 ML 2ML syringe IV ONE (14:35)
[2019-01-05] MEDS ORDERED: normal saline 1000ml 1,000 ML IV SCH (14:35)
[2019-01-05] MEDS ORDERED: CYAN100019 PO (16:56)
[2019-01-05] MEDS ORDERED: ACET-2119 PO (16:56)
[2019-01-05] MEDS ORDERED: DIPH-915 PO (16:56)
[2019-01-05] MEDS ORDERED: POLY17PO10 PO (16:56)
[2019-01-05] MEDS ORDERED: ALBU18HF2 INH (16:56)
[2019-01-05] MEDS ORDERED: CHOL200012 PO (16:56)
== END 2019-01-05 18:20 | disposition home or self-care (01) ==
LOC: SSTAY O 14:08
PROVIDERS: ATTEND Internal Medicine Interventional Cardiology
DX: I48.3 Typical atrial flutter (principal); I48.0 Paroxysmal atrial fibrillation; G47.33 Obstructive sleep apnea (adult) (pediatric); E78.49 Other hyperlipidemia; I12.9 Hypertensive chronic kidney disease with stage 1 through stage 4 chronic kidney disease, or unspecified chronic kidney disease; N18.9 Chronic kidney disease, unspecified; Z79.899 Other long term (current) drug therapy; Z88.8 Allergy status to other drugs, medicaments and biological substances
CPT/HCPCS: 36415; 80048; 85025; 85610; 85730; 92960; 93005; J2250; J3010; J7030

== ENCOUNTER 2019-07-08 15:43 | Outpatient (CLI) | payer MEDICARE, MEDICAID ==
[~2019-07-08] VITALS: Ht 165.1 cm; Wt 104.3 kg
[~2019-07-08 15:43] MED LIST changes: +ACET-2119 PO; +CHOL200012 PO; +CYAN100019 PO; +DIPH-915 PO; -PANT-47 PO; +POLY17PO10 PO; +SIMV-42 PO; -SIMV20TA5 PO
[2019-07-08 16:05] LABS: TOTAL HEMOGLOBIN 13.7 G/dl (12.0-16.0)
[2019-07-08] MEDS ORDERED: albuterol 2.5 MG/3 ML nebule NEB ONE (16:20)
== END 2019-07-08 23:59 | disposition home or self-care (01) ==
LOC: RT 15:43
PROVIDERS: ATTEND Specialist
DX: R06.02 Shortness of breath (principal); J98.4 Other disorders of lung
CPT/HCPCS: 85018; 94060; 94727; 94729; 94760

== ENCOUNTER 2019-09-15 08:41 | Outpatient (CLI) | payer MEDICARE, MEDICAID | END 2019-09-15 23:59 | disposition home or self-care (01) | LOC: 64 CT 08:41 | PROVIDERS: ATTEND Specialist | DX: I51.7 Cardiomegaly (principal); M47.814 Spondylosis without myelopathy or radiculopathy, thoracic region; I48.91 Unspecified atrial fibrillation; R94.2 Abnormal results of pulmonary function studies | CPT/HCPCS: 71250 ==

== ENCOUNTER 2020-01-18 18:12 | Emergency (ER) | payer MEDICARE, MEDICAID ==
[~2020-01-18] VITALS: Ht 165.1 cm; Wt 109.1 kg
[~2020-01-18 18:12] MED LIST changes: +ACET-2006 PO; -ACET-2119 PO; +AMIO200T61 PO; +CARCD120C PO; -FLEC100T2 PO; -FURO20TA4 PO; -LISI-604 PO; +METO-384 PO; -PRAM0.253 PO; +PRED20TA PO
[2020-01-18] MEDS ORDERED: normal saline 1000ML IV soln IVB ONE ×3 (18:45→21:35)
[2020-01-18] MEDS ORDERED: magnesium 2GM in 50ml NS 50 ML IV ONE (18:50)
[2020-01-18] MEDS ORDERED: diltiazem 5mg/ml 5ml inj. IV ONE (18:50)
[2020-01-18 18:59] LABS: BASOPHILS % (AUTO) 0.2 % (0-1); EOSINOPHILS % (AUTO) 0.2 % (0-6); HEMATOCRIT 34.9 % (35.0-45.0); HEMOGLOBIN 11.7 g/dl (12.0-16.0); LYMPHOCYTES # (AUTO) 0.8 X10'3 (1.1-4.8); LYMPHOCYTES % (AUTO) 4.1 % (21-51); MEAN CORPUSCULAR HEMOGLOBIN 32.3 PG (27.0-31.0); MEAN CORPUSCULAR HGB CONC 33.5 g/dL (33.0-36.5); MEAN CORPUSCULAR VOLUME 96.3 FL (78-98); MEAN PLATELET VOLUME 7.9 FL (7.4-10.4); MONOCYTES # (AUTO) 3.3 X10'3 (0-0.9); MONOCYTES % (AUTO) 16.4 % (2-12); NEUTROPHILS % (AUTO) 79.1 % (42-75); PLATELET COUNT 301 X10'3 (140-440); RED BLOOD COUNT 3.62 X10'6 (4.20-5.60); RED CELL DISTRIBUTION WIDTH 16.3 % (11.5-14.5); WHITE BLOOD COUNT 20.2 X10'3 (4.5-11.0)
[2020-01-18 19:14] LABS: ALANINE AMINOTRANSFERASE 79 U/L (12-78); ALBUMIN 2.3 G/DL (3.4-5.0); ALBUMIN/GLOBULIN RATIO 0.5 (1.1-1.5); ALKALINE PHOSPHATASE 114 IU/L (46-116); ANION GAP 8 (8-16); ASPARTATE AMINO TRANSFERASE 79 U/L (10-37); BILIRUBIN,TOTAL 0.8 MG/DL (0.1-1.0); BLOOD UREA NITROGEN 29 MG/DL (7-18); BUN/CREATININE RATIO 22.7 (6.6-38.0); CALCIUM 9.1 MG/DL (8.5-10.1); CHLORIDE 103 MMOL/L (99-107); CREATININE 1.28 MG/DL (0.40-0.90); ETHANOL < 0.010 GM/DL (0.0-0.010); GLUCOSE 127 MG/DL (70-104); LIPASE 438 U/L (73-393); MAGNESIUM 1.8 MG/DL (1.5-2.4); POTASSIUM 4.4 MMOL/L (3.5-5.1); SODIUM 135 MMOL/L (135-145); TOTAL CARBON DIOXIDE 23.7 MMOL/L (24-32); TOTAL PROTEIN 6.5 G/DL (6.4-8.2); eGFR 42 ML/MIN
[2020-01-18] MEDS ORDERED: acetylcysteine 200 MG/ml 4ml vial PO ONE (20:15)
[2020-01-18] MEDS ORDERED: sodium bicarbonate (8.4%) inj. 50 MEQ in dextrose 5%-water 1,000 ML IV SCH (20:15)
[2020-01-18 20:53] LABS: LARGE PLATELETS FEW; PLATELET ESTIMATE NORMAL; TOTAL CELLS COUNTED 100; TOXIC VACUOLATION FEW
[2020-01-18 20:54] LABS: ANISOCYTOSIS 1+; POLYCHROMASIA 1+; TOXIC GRANULATION 2+
[2020-01-18 20:55] LABS: TARGET CELLS FEW
[2020-01-18] MEDS ORDERED: morphine 4 MG/ML inj SYRINge IV ONE (21:35)
[2020-01-18] MEDS ORDERED: morphine 2 MG/ML inj. syringe IV PRN (21:35)
[2020-01-18] MEDS ORDERED: ondansetron/PF 4mg/2ml inj IV ONE ×2 (21:35→22:25)
[2020-01-19 00:43] VITALS: BP 144/97
== END 2020-01-19 00:44 | disposition home or self-care (01) ==
LOC: ER 18:13
DX: K85.90 Acute pancreatitis without necrosis or infection, unspecified (principal); R10.9 Unspecified abdominal pain; I48.91 Unspecified atrial fibrillation; I50.9 Heart failure, unspecified; I25.2 Old myocardial infarction; K21.9 Gastro-esophageal reflux disease without esophagitis; Z90.49 Acquired absence of other specified parts of digestive tract; Z90.710 Acquired absence of both cervix and uterus; Z98.890 Other specified postprocedural states; Z72.89 Other problems related to lifestyle; Z88.8 Allergy status to other drugs, medicaments and biological substances; Z79.01 Long term (current) use of anticoagulants; Z79.899 Other long term (current) drug therapy
CPT/HCPCS: 36415; 74177; 80053; 80320; 83690; 83735; 85007; 85025; 85610; 93005; 96365; 96366; 96368; 96375; 99285; J2270; J2405; J3475; J7030; 85008; J3490

== ENCOUNTER 2020-03-16 13:03 | Outpatient (CLI) | payer MEDICARE, MEDICAID | END 2020-03-16 23:59 | disposition home or self-care (01) | LOC: 64 CT 13:03 | PROVIDERS: ATTEND Specialist | DX: R91.1 Solitary pulmonary nodule (principal); I25.10 Atherosclerotic heart disease of native coronary artery without angina pectoris; I48.19 Other persistent atrial fibrillation | CPT/HCPCS: 71250 ==